=== PATIENT | male | born 1955 | race Hispanic/Latino ===

== ENCOUNTER 2016-09-19 03:31 | Emergency (ER) | payer BC ==
[2016-09-19 03:56] VITALS: BP 145/93
--- NOTE | 2016-09-19 04:16 | XRay Report ---
FINAL REPORT PROCEDURE: XR ELBOW 2V RT TECHNIQUE: RIGHT elbow radiographs, including AP and lateral views. HISTORY: Rt Elbow pain and swollen COMPARISON: No prior studies are available for comparison. FINDINGS: Fracture (s) and/or Dislocation(s): None . Alignment: Normal . Joint space(s): Minimal narrowing. Soft tissues: Normal . Bone mineralization: Normal . Foreign bodies: None . IMPRESSION: No acute fracture or dislocation. Mild arthritis
--- NOTE | 2016-09-19 06:09 | Emergency Department Report ---
Upper Extremity - HPI Chief Complaint: Extremity Injury, Upper Stated Complaint: POSS DISLOCATED RT ELBOW Time Seen by Provider: 09/19/16 06:03 Upper Extremity: Right Elbow Occurred When: 3 Days Severity: mild Symptoms: No Pain with Movement, No Deformity, No Limited Range of Movement, No Numbness, No Weakness, No Swelling, No Bruising/Ecchymosis, No Laceration or Abrasion Other History: This is a 61-year-old male that presents with right elbow discomfort for the past 3 days. Patient stated has discomfort when he bends his arm but denies any pain. Patient stated moves his arm a lot due to his work. 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 Patient denies any trauma to the area. Patient denies any numbness or tingling sensation. Patient denies chest pain or shortness of breath, abdominal pain, nausea or vomiting. Denies fever or chills. Patient does not seem toxic or ill in appearance. No signs of distress noted. ED Review of Systems ROS: Stated complaint: POSS DISLOCATED RT ELBOW Other details as noted in HPI Constitutional: denies: chills, fever Eyes: denies: eye pain, eye discharge, vision change ENT: denies: ear pain, throat pain Respiratory: denies: cough, shortness of breath, wheezing Cardiovascular: denies: chest pain, palpitations Endocrine: no symptoms reported Gastrointestinal: denies: abdominal pain, nausea, diarrhea Genitourinary: denies: urgency, dysuria Musculoskeletal: denies: back pain, joint swelling, arthralgia Skin: denies: rash, lesions Neurological: denies: headache, weakness, paresthesias Psychiatric: denies: anxiety, depression Hematological/Lymphatic: denies: easy bleeding, easy bruising ED Past Medical Hx - Past Medical History Previous Medical History?: No - Surgical History Past Surgical History?: Yes Additional Surgical History: Kidney Biopsy - Social History Smoking Status: Never Smoker Substance Use Type: None - Medications Home Medications: Home Medications Medication Instructions Recorded Confirmed Last Taken Type Ibuprofen [Motrin 600 MG tab] 600 mg PO Q8H PRN 5 Days 09/19/16 Unknown Rx Upper Extremity Exam - Exam General: Vital signs noted. No distress. Alert and acting appropriately. GENERAL: The patient is a well-developed, well-nourished male in no apparent distress. Patient is alert and oriented x3. VITAL SIGNS: Stable HEENT: Head is normocephalic and atraumatic. Extraocular muscles are intact. Pupils are equal, round, and reactive to light and accommodation. Nares appeared normal. Mouth is well hydrated and without lesions. Mucous membranes are moist. Posterior pharynx clear of any exudate or lesions. NECK: Supple. No carotid bruits. No lymphadenopathy or thyromegaly. LUNGS: Clear to auscultation. HEART: Regular rate and rhythm without murmur. ABDOMEN: Soft, nontender, and nondistended. Positive bowel sounds. No hepatosplenomegaly was noted. EXTREMITIES: Without any cyanosis, clubbing, rash, lesions or edema. Patient denies tenderness to right elbow. No swelling noted. Denies numbness/tingling. No deformity present. No laceration or abrasion noted. NEUROLOGIC: Cranial nerves II through XII are grossly intact. PSYCHIATRIC: Flat affect, but denies suicidal or homicidal ideations. SKIN: No ulceration or induration present. Head and Torso: No HEENT Abnormality, No Neck Tenderness, No Chest/Lungs Abnormality, No Abdominal Tenderness, No Back Tenderness Shoulder Exam: Yes Normal Range of Motion in Shoulder, No Shoulder Tenderness, No Clavicle Tenderness, No Shoulder Deformity, No AC Joint Tenderness Arm Exam: No Arm/Humerus Tenderness, No Arm Deformity Elbow: No Elbow Tenderness, No Normal Range of Motion in Elbow, No Elbow Deformity Forearm: No Forearm Tenderness, No Forearm Deformity, No Pain with Pronation, No Pain with Supination Wrist: Yes Normal ROM in Wrist, No Wrist Tenderness, No Wrist Deformity, No Snuffbox Tenderness, No Pain with Axial Thumb Compression Hand: Yes Normal ROM in Digit(s), No Hand Tenderness, No Hand Deformity, No Digit Tenderness, No Digit(s) Deformity, No Tendon Dysfunction CMS Exam: No Broken Skin, No Normal Distal Pulses, No Normal Capillary Refill, No Normal Distal Sensation ED Course Vital Signs 09/19/16 03:37 Temperature 97.7 F Pulse Rate 67 Respiratory 18 Rate Blood Pressure 145/93 O2 Sat by Pulse 98 Oximetry ED Medical Decision Making - Medical Decision Making Ed course: This is a 61-year-old male that presents with right elbow discomfort for the past 3 days. 1- x-ray was obtained to the right elbow. X-ray results stated no acute fracture or dislocation. Mild arthritis noted. 2- patient was instructed of the x-ray findings. 3- patient received ibuprofen 600 mg for pain as needed At the time of discharge. 4- at the time of discharge the patient does not seem toxic or ill in appearance. 5- I instructed the patient if symptoms worsen to report back to the emergency room or follow-up with her primary care doctor. 6- patient agrees to discharge plan and treatment. No further question about the patient. Critical care attestation.: If time is entered above; I have spent that time in minutes in the direct care of this critically ill patient, excluding procedure time. ED Disposition Clinical Impression: Elbow arthritis Disposition: DISCHARGED TO HOME OR SELFCARE Is pt being admited?: No Does the pt Need Aspirin: No Condition: Stable Instructions: Osteoarthritis (ED), Analgesic/Decongestant (By mouth) Additional Instructions: Follow-up with her primary care doctor in 3-5 days If symptoms worsen report back to emergency room. Take ibuprofen 600 mg as prescribed as needed. Prescriptions: Ibuprofen [Motrin 600 MG tab] 600 mg PO Q8H PRN 5 Days PRN Reason: Pain Referrals: ANGY CORONA MD [Primary Care Provider] - 3-5 Days [facility] [Outside] - 3-5 Days [facility] [Outside] - 3-5 Days WILLIAM RHODES MD [Staff Physician] - 3-5 Days Forms: Work/School Release Form(ED)
== END 2016-09-19 06:30 | disposition home or self-care (01) ==
LOC: ED 03:31
DX: M19.021 Primary osteoarthritis, right elbow (principal)
CPT/HCPCS: 99283